=== PATIENT | female | born 1995 | race Caucasian/White ===

== ENCOUNTER 2021-03-21 11:20 | Emergency (ER) | payer OTHER ==
[~2021-03-21] VITALS: Ht 149.9 cm; Wt 70.0 kg
[2021-03-21] MEDS ORDERED: OMEPRAZOLE20 MG PO (12:52)
--- NOTE | 2021-03-24 18:12 | EKG ---
[facility] [address] [facility] [place], [place] [address] Signed Sinus tachycardia Otherwise normal ECG When compared with ECG of 21-MAR-2021 11:29, (Unconfirmed) No significant change was found Confirmed by LASHELL VELEZ MD ([id number]) on 03/24/2021 6:12:14 PM Electronically Signed By: LASHELL VELEZ MD 03/24/[id number] PATIENT NAME: SUADDEAN A Electrocardiogram DATE OF : [birth year] PHYSICIAN: LASHELL VELEZ MD REPORT #: [id number] REPORT IS CONFIDENTIAL AND NOT TO BE RELEASED WITHOUT AUTHORIZATION
== END 2021-03-21 13:05 | disposition home or self-care (01) ==
LOC: ED 11:20
DX: K21.9 Gastro-esophageal reflux disease without esophagitis (principal); F17.200 Nicotine dependence, unspecified, uncomplicated; Z88.6 Allergy status to analgesic agent
CPT/HCPCS: 80053; 83690; 84484; 85025; 93005; 93010; 99285-25